=== PATIENT | male | born 1955 | race Asian ===

== ENCOUNTER 2017-09-26 05:14 | Inpatient (IN) | payer MEDICARE, OTHER ==
[~2017-09-26] VITALS: Ht 167.6 cm; Wt 89.6 kg
[~2017-09-26 05:14] MED LIST: ALLO300T PO; ALPR0.254 PO; ASPI-650 PO; CARV-39 PO; GLIP5TAB10 PO; ISOS30TA8 PO; LISI1TAB5 PO; METF500T4 PO; ROSU40TA PO
[2017-09-26] MEDS ORDERED: CETI-158 PO (06:03)
[2017-09-26] MEDS ORDERED: AMLO1POW2 PO (06:05)
[2017-09-26] MEDS ORDERED: CLOP75TA52 PO (06:05)
[2017-09-26] MEDS ORDERED: FURO-93 PO (06:06)
[2017-09-26] MEDS ORDERED: RANO500T2 PO (06:07)
[2017-09-26] MEDS ORDERED: ROSU40TA PO (06:08)
[2017-09-26] MEDS ORDERED: LIRA0.6P SQ-INSULIN (06:09)
[2017-09-26 06:23] LABS: TROPONIN I < 0.015 ng/mL (0.000-0.045)
[2017-09-26] MEDS ORDERED: SODIUM CHLORIDE 0.9% 1,000 ML IV SCH (08:29)
[2017-09-26 09:23] VITALS: BP 142/90
[2017-09-26 09:37] LABS: INTERNATIONAL NORMALIZED RATIO 0.95 (0.93-1.1); PROTHROMBIN TIME 9.9 Seconds (9.6-11.5)
[2017-09-26 09:42] LABS: ALANINE AMINOTRANSFERASE 43 U/L (12-78); ALBUMIN 3.5 g/dL (3.4-5.0); ANION GAP 8 mmol/L (5-15); CALCIUM 8.6 mg/dL (8.5-10.1); CHLORIDE 109 mmol/L (98-107); CREATININE 2.95 mg/dL (0.7-1.3)
[2017-09-26 09:46] LABS: ALKALINE PHOSPHATASE 59 U/L (45-117); BILIRUBIN,TOTAL 0.3 mg/dL (0.2-1.0); TOTAL PROTEIN 7.1 g/dL (6.4-8.2); TROPONIN I < 0.015 ng/mL (0.000-0.045)
[2017-09-26 09:48] LABS: BASOPHILS # (AUTO) 0.03 x10^3/uL (0-0.1); BASOPHILS % (AUTO) 1 % (0-1); EOSINOPHILS # (AUTO) 0.16 x10^3/uL (0-0.4); EOSINOPHILS % (AUTO) 3 % (1-7); LYMPHOCYTES # (AUTO) 1.79 x10^3/uL (1-3.4); LYMPHOCYTES % (AUTO) 29 % (22-44); MD NO; MEAN CORPUSCULAR HEMOGLOBIN 34.5 pg (27.5-34.5); MEAN CORPUSCULAR HGB CONC 33.6 g/dL (33.2-36.2); MEAN CORPUSCULAR VOLUME 102.6 fL (81-97); MONOCYTES % (AUTO) 8 % (2-9); NEUTROPHILS # (AUTO) 3.79 x10^3/uL (1.8-6.8); NEUTROPHILS % (AUTO) 61 % (42-75); PLATELET COUNT 238 x10^3/uL (130-400); RED BLOOD COUNT 4.18 x10^6/uL (4.38-5.82); RED CELL DISTRIBUTION WIDTH 13.7 % (9.4-14.8)
[2017-09-26] MEDS ORDERED: HYDROCHLOROTHIAZIDE 12.5 MG CAPSULE PO SCH (09:57)
[2017-09-26] MEDS ORDERED: LISINOPRIL 20 MG TABLET PO SCH (09:57)
[2017-09-26] MEDS ORDERED: DEXTROSE 4 GM TAB.CHEW PO PRN (10:00)
[2017-09-26] MEDS ORDERED: GLUCAGON 1 MG IM PRN (10:00)
[2017-09-26] MEDS ORDERED: FUROSEMIDE 20 MG TABLET PO SCH (10:00)
[2017-09-26] MEDS ORDERED: DEXTROSE 50%, 50ML SYRINGE IVPush PRN (10:00)
[2017-09-26] MEDS: INSULIN LISPRO 100 UNITS/ML, PEN SQ-INSULIN SCH ×3 (11:00→21:00)
[2017-09-26] MEDS: RANOLAZINE 500 MG TAB.ER.12H PO SCH (11:26)
[2017-09-26] MEDS: ISOSORBIDE MONONITRATE ER 30 MG TABLET PO SCH ×2 (11:27→21:45)
[2017-09-26] MEDS: CLOPIDOGREL 75 MG TABLET PO SCH (11:52)
[2017-09-26 12:45] LABS: HEMOGLOBIN A1C 7.1 % (4.2-6.3)
[2017-09-26 14:22] VITALS: BP 146/93
[2017-09-26 14:42] LABS: TROPONIN I < 0.015 ng/mL (0.000-0.045)
[2017-09-26] MEDS: FUROSEMIDE 20 MG TABLET PO SCH ×2 (17:40→21:42)
[2017-09-26 18:35] VITALS: BP 142/90
[2017-09-26] MEDS ORDERED: hydrALAzine 20 MG/ML, 1ML IV PRN (19:00)
[2017-09-26 19:53] VITALS: BP 160/95
[2017-09-26] MEDS: SODIUM CHLORIDE FLUSH 10ML SYR IVF SCH (21:39)
[2017-09-26] MEDS: CARVEDILOL 25 MG TABLET PO SCH (21:41)
[2017-09-26] MEDS: ATORVASTATIN 80 MG TABLET PO SCH (21:42)
[2017-09-26] MEDS: LISINOPRIL 20 MG TABLET PO SCH (21:42)
[2017-09-27 02:41] VITALS: BP 147/89
[2017-09-27 05:35] LABS: BASOPHILS # (AUTO) 0.07 x10^3/uL (0-0.1); BASOPHILS % (AUTO) 1 % (0-1); EOSINOPHILS # (AUTO) 0.17 x10^3/uL (0-0.4); EOSINOPHILS % (AUTO) 2 % (1-7); LYMPHOCYTES # (AUTO) 2.43 x10^3/uL (1-3.4); LYMPHOCYTES % (AUTO) 31 % (22-44); MD NO; MEAN CORPUSCULAR HEMOGLOBIN 34.7 pg (27.5-34.5); MEAN CORPUSCULAR HGB CONC 33.7 g/dL (33.2-36.2); MEAN CORPUSCULAR VOLUME 102.8 fL (81-97); MEAN PLATELET VOLUME 9.1 fL (7.4-10.4); MONOCYTES # (AUTO) 0.69 x10^3/uL (0.2-0.8); MONOCYTES % (AUTO) 9 % (2-9); NEUTROPHILS # (AUTO) 4.56 x10^3/uL (1.8-6.8); NEUTROPHILS % (AUTO) 58 % (42-75); PLATELET COUNT 235 x10^3/uL (130-400); RED BLOOD COUNT 4.11 x10^6/uL (4.38-5.82); RED CELL DISTRIBUTION WIDTH 13.9 % (9.4-14.8)
[2017-09-27 05:41] LABS: ANION GAP 9 mmol/L (5-15); CALCIUM 8.4 mg/dL (8.5-10.1); CHLORIDE 105 mmol/L (98-107); CHOLESTEROL, TOTAL 109 mg/dL (140-239); CREATININE 2.82 mg/dL (0.7-1.3); TRIGLYCERIDES 232 mg/dL (50-200); VLDL CHOLESTEROL 46 mg/dL (0-25)
[2017-09-27 05:43] LABS: CHOL/HDL RATIO 3.6; HDL CHOL % 28 % (26-37); HDL CHOLESTEROL (DIRECT) 30 mg/dL (40-60); LDL CHOLESTEROL,CALCULATED 33 mg/dL (54-169); LDL/HDL RATIO 1.1 (0.5-3.0)
[2017-09-27] MEDS: INSULIN LISPRO 100 UNITS/ML, PEN SQ-INSULIN SCH ×4 (07:00→20:46)
[2017-09-27 08:06] VITALS: BP 132/77
[2017-09-27] MEDS ORDERED: REGADENOSON 0.4 MG/5 ML SYRINGE ONE (08:25)
[2017-09-27] MEDS: Liraglutide (Victoza 2-Pak) 1.8 MG SQ-INSULIN SCH (09:00)
[2017-09-27 11:00] VITALS: BP 165/81
[2017-09-27] MEDS: ISOSORBIDE MONONITRATE ER 30 MG TABLET PO SCH ×2 (11:02→20:43)
[2017-09-27] MEDS: FUROSEMIDE 20 MG TABLET PO SCH ×2 (11:02→20:44)
[2017-09-27] MEDS: AMLODIPINE 5 MG TABLET PO SCH (11:02)
[2017-09-27] MEDS: CARVEDILOL 25 MG TABLET PO SCH ×2 (11:03→20:43)
[2017-09-27] MEDS: ASPIRIN 325 MG TABLET EC PO SCH (11:03)
[2017-09-27] MEDS: LISINOPRIL 20 MG TABLET PO SCH ×2 (11:03→20:44)
[2017-09-27] MEDS: CETIRIZINE 10 MG TABLET PO SCH (11:03)
[2017-09-27] MEDS: CLOPIDOGREL 75 MG TABLET PO SCH (11:03)
[2017-09-27] MEDS: RANOLAZINE 500 MG TAB.ER.12H PO SCH (11:03)
[2017-09-27] MEDS: SODIUM CHLORIDE FLUSH 10ML SYR IVF SCH ×2 (11:04→20:46)
[2017-09-27 13:19] VITALS: BP 148/95
[2017-09-27] MEDS: ATORVASTATIN 80 MG TABLET PO SCH ×2 (20:44)
[2017-09-27 21:29] VITALS: BP 149/79
[2017-09-28 02:00] VITALS: BP 112/75
[2017-09-28 08:06] VITALS: BP 146/83
[2017-09-28] MEDS: Liraglutide (Victoza 2-Pak) 1.8 MG SQ-INSULIN SCH (09:00)
[2017-09-28] MEDS ORDERED: SODIUM CHLORIDE 0.9% 1,000 ML IV SCH (09:00)
[2017-09-28] MEDS: SODIUM CHLORIDE FLUSH 10ML SYR IVF SCH ×2 (09:10→20:02)
[2017-09-28] MEDS: CARVEDILOL 25 MG TABLET PO SCH ×2 (09:11→19:59)
[2017-09-28] MEDS: AMLODIPINE 5 MG TABLET PO SCH (09:11)
[2017-09-28] MEDS: RANOLAZINE 500 MG TAB.ER.12H PO SCH (09:11)
[2017-09-28] MEDS: ISOSORBIDE MONONITRATE ER 30 MG TABLET PO SCH ×2 (09:11→19:56)
[2017-09-28] MEDS: ASPIRIN 325 MG TABLET EC PO SCH (09:11)
[2017-09-28] MEDS: CLOPIDOGREL 75 MG TABLET PO SCH (09:11)
[2017-09-28] MEDS: INSULIN LISPRO 100 UNITS/ML, PEN SQ-INSULIN SCH ×4 (09:12→19:59)
[2017-09-28] MEDS: CETIRIZINE 10 MG TABLET PO SCH (09:12)
[2017-09-28 14:15] VITALS: BP 132/81
[2017-09-28 18:40] VITALS: BP 146/83
[2017-09-28] MEDS: ATORVASTATIN 80 MG TABLET PO SCH ×2 (19:57→19:58)
[2017-09-28 20:00] VITALS: BP 127/76
[2017-09-29] MEDS ORDERED: SODIUM CHLORIDE 0.9% 1,000 ML IV SCH
[2017-09-29 03:20] VITALS: BP 115/70
[2017-09-29] MEDS: SODIUM CHLORIDE 0.9% 1,000 ML IV SCH ×4 (05:33→22:41)
[2017-09-29 07:29] VITALS: BP 147/84
[2017-09-29] MEDS: INSULIN LISPRO 100 UNITS/ML, PEN SQ-INSULIN SCH ×4 (08:45→20:15)
[2017-09-29] MEDS: SODIUM CHLORIDE FLUSH 10ML SYR IVF SCH ×2 (08:46→20:15)
[2017-09-29] MEDS: ASPIRIN 325 MG TABLET EC PO SCH (08:47)
[2017-09-29] MEDS: CARVEDILOL 25 MG TABLET PO SCH ×2 (08:47→20:15)
[2017-09-29] MEDS: RANOLAZINE 500 MG TAB.ER.12H PO SCH (08:48)
[2017-09-29] MEDS: ISOSORBIDE MONONITRATE ER 30 MG TABLET PO SCH ×2 (08:48→20:14)
[2017-09-29] MEDS: AMLODIPINE 5 MG TABLET PO SCH (08:49)
[2017-09-29] MEDS: CLOPIDOGREL 75 MG TABLET PO SCH (08:49)
[2017-09-29] MEDS: Liraglutide (Victoza 2-Pak) 1.8 MG SQ-INSULIN SCH (08:49)
[2017-09-29] MEDS: CETIRIZINE 10 MG TABLET PO SCH (08:49)
[2017-09-29 10:32] LABS: ANION GAP 5 mmol/L (5-15); CALCIUM 8.7 mg/dL (8.5-10.1); CHLORIDE 109 mmol/L (98-107); CREATININE 2.99 mg/dL (0.7-1.3)
[2017-09-29] MEDS ORDERED: FENTANYL PF 100 MCG/2ML ONE (12:50)
[2017-09-29] MEDS ORDERED: MIDAZOLAM 1 MG/ML, 5ML ONE (12:50)
[2017-09-29] MEDS ORDERED: TICAGRELOR 90 MG TABLET ONE (12:50)
[2017-09-29] MEDS ORDERED: HEPARIN 1,000 UNITS/ML, 10ML ONE (12:51)
[2017-09-29] MEDS ORDERED: LIDOCAINE 2%, 2ML ONE (12:51)
[2017-09-29] MEDS ORDERED: VERAPAMIL 2.5 MG/ML, 2ML ONE (12:51)
[2017-09-29] MEDS ORDERED: BIVALIRUDIN 250 MG ONE (12:51)
[2017-09-29 14:45] VITALS: BP 149/87
[2017-09-29 18:52] VITALS: BP 145/78
[2017-09-29] MEDS: ATORVASTATIN 80 MG TABLET PO SCH (20:13)
[2017-09-30 01:04] VITALS: BP 121/71
[2017-09-30 05:31] LABS: ANION GAP 7 mmol/L (5-15); CALCIUM 8.5 mg/dL (8.5-10.1); CHLORIDE 112 mmol/L (98-107)
[2017-09-30 05:33] LABS: CREATININE 3.16 mg/dL (0.7-1.3)
[2017-09-30] MEDS: CETIRIZINE 10 MG TABLET PO SCH (08:45)
[2017-09-30] MEDS: INSULIN LISPRO 100 UNITS/ML, PEN SQ-INSULIN SCH ×4 (08:45→22:14)
[2017-09-30] MEDS: CLOPIDOGREL 75 MG TABLET PO SCH (08:45)
[2017-09-30] MEDS: SODIUM CHLORIDE FLUSH 10ML SYR IVF SCH ×2 (08:48→22:00)
[2017-09-30] MEDS: RANOLAZINE 500 MG TAB.ER.12H PO SCH (08:48)
[2017-09-30] MEDS: AMLODIPINE 5 MG TABLET PO SCH (08:48)
[2017-09-30] MEDS: ASPIRIN 325 MG TABLET EC PO SCH (08:48)
[2017-09-30] MEDS: ISOSORBIDE MONONITRATE ER 30 MG TABLET PO SCH ×2 (08:48→22:15)
[2017-09-30] MEDS: CARVEDILOL 25 MG TABLET PO SCH ×2 (08:48→22:15)
[2017-09-30] MEDS: Liraglutide (Victoza 2-Pak) 1.8 MG SQ-INSULIN SCH (08:49)
[2017-09-30 08:58] VITALS: BP 178/83
[2017-09-30] MEDS ORDERED: SODIUM CHLORIDE 0.9% 500 ML IV SCH (14:00)
[2017-09-30 14:07] VITALS: BP 147/78
[2017-09-30 20:59] VITALS: BP 159/79
[2017-09-30] MEDS: ATORVASTATIN 80 MG TABLET PO SCH (22:15)
[2017-10-01 01:45] VITALS: BP 137/81
[2017-10-01 05:48] LABS: ALBUMIN 2.9 g/dL (3.4-5.0); ANION GAP 6 mmol/L (5-15); CALCIUM 8.4 mg/dL (8.5-10.1); CHLORIDE 112 mmol/L (98-107)
[2017-10-01 05:50] LABS: CREATININE 2.76 mg/dL (0.7-1.3)
[2017-10-01] MEDS: INSULIN LISPRO 100 UNITS/ML, PEN SQ-INSULIN SCH (07:00)
[2017-10-01] MEDS: ASPIRIN 325 MG TABLET EC PO SCH (07:40)
[2017-10-01] MEDS: RANOLAZINE 500 MG TAB.ER.12H PO SCH (07:40)
[2017-10-01] MEDS: AMLODIPINE 5 MG TABLET PO SCH (07:40)
[2017-10-01] MEDS: CLOPIDOGREL 75 MG TABLET PO SCH (07:40)
[2017-10-01] MEDS: ISOSORBIDE MONONITRATE ER 30 MG TABLET PO SCH (07:41)
[2017-10-01] MEDS: SODIUM CHLORIDE FLUSH 10ML SYR IVF SCH (07:41)
[2017-10-01] MEDS: CARVEDILOL 25 MG TABLET PO SCH (07:41)
[2017-10-01] MEDS: CETIRIZINE 10 MG TABLET PO SCH (07:41)
[2017-10-01] MEDS: Liraglutide (Victoza 2-Pak) 1.8 MG SQ-INSULIN SCH (07:44)
[2017-10-01 08:30] VITALS: BP 125/71
[2017-10-01] MEDS ORDERED: HYDR-3342 PO (09:00)
== END 2017-10-01 11:00 | disposition home or self-care (01) | DRG 286 ==
LOC: ED 05:39 → EDIP 07:53 → 5SO 09:19 → DCLOUNGE 10-01 10:08
PROVIDERS: ADMIT Hospitalist; ATTEND Hospitalist
PROC: 4A023N7 Measurement of Cardiac Sampling and Pressure, Left Heart, Percutaneous Approach (ICD-10-PCS; principal; 2017-09-29)
PROC: B2111ZZ Fluoroscopy of Multiple Coronary Arteries using Low Osmolar Contrast (ICD-10-PCS; 2017-09-29)
PROC: B2131ZZ Fluoroscopy of Multiple Coronary Artery Bypass Grafts using Low Osmolar Contrast (ICD-10-PCS; 2017-09-29)
PROC: B2181ZZ Fluoroscopy of Left Internal Mammary Bypass Graft using Low Osmolar Contrast (ICD-10-PCS; 2017-09-29)
DX: I25.118 Atherosclerotic heart disease of native coronary artery with other forms of angina pectoris (principal); I50.33 Acute on chronic diastolic (congestive) heart failure; E11.22 Type 2 diabetes mellitus with diabetic chronic kidney disease; N17.9 Acute kidney failure, unspecified; N18.4 Chronic kidney disease, stage 4 (severe); E83.9 Disorder of mineral metabolism, unspecified; N25.0 Renal osteodystrophy; I13.0 Hypertensive heart and chronic kidney disease with heart failure and stage 1 through stage 4 chronic kidney disease, or unspecified chronic kidney disease; I50.30 Unspecified diastolic (congestive) heart failure; I16.0 Hypertensive urgency; Z79.82 Long term (current) use of aspirin; Z79.899 Other long term (current) drug therapy; E78.00 Pure hypercholesterolemia, unspecified; E78.5 Hyperlipidemia, unspecified; G47.33 Obstructive sleep apnea (adult) (pediatric); N14.1 Nephropathy induced by other drugs, medicaments and biological substances; T50.8X5A Adverse effect of diagnostic agents, initial encounter; Y92.89 Other specified places as the place of occurrence of the external cause; Z79.4 Long term (current) use of insulin; I25.2 Old myocardial infarction; Z82.49 Family history of ischemic heart disease and other diseases of the circulatory system; Z80.9 Family history of malignant neoplasm, unspecified; Z83.3 Family history of diabetes mellitus; Z90.49 Acquired absence of other specified parts of digestive tract; Z95.1 Presence of aortocoronary bypass graft
CPT/HCPCS: 36415; 71045; 78452; 80048; 80053; 80061; 82040; 82306; 82962; 83036; 83735; 83970; 84100; 84439; 84443; 84484; 84550; 85025; 85610; 93005; 93017; 93306; 93459; 99156; 99285; C1769; C1894; J0583; J1644; J2250; J2785; J3010; J3490; A9502; C9898; J1815; J7030; J7040; Q9967